=== PATIENT | female | born 1935 | race Native Hawaiian/Other Pacific Islander ===

== ENCOUNTER 2016-08-12 09:48 | Outpatient (CLI) | payer OTHER ==
[~2016-08-12] VITALS: Ht 162.6 cm; Wt 54.0 kg
[2016-08-12 10:05] VITALS: BP 116/59; TEMP 97.9
[2016-08-12 11:37] VITALS: BP 123/66; TEMP 97.9
== END 2016-08-12 19:16 | disposition home or self-care (01) ==
LOC: INF 09:48
DX: M81.0 Age-related osteoporosis without current pathological fracture (principal)
CPT/HCPCS: 36415; 82310; 96372; J0897

== ENCOUNTER 2017-03-02 08:39 | Outpatient (CLI) | payer OTHER ==
[~2017-03-02] VITALS: Ht 163.8 cm; Wt 54.0 kg
[2017-03-02 10:00] VITALS: BP 113/52; TEMP 97.5
== END 2017-03-02 19:03 | disposition home or self-care (01) ==
LOC: INF 08:39
DX: M81.0 Age-related osteoporosis without current pathological fracture (principal)
CPT/HCPCS: 82310; 96372; J0897

== ENCOUNTER 2017-09-13 09:48 | Outpatient (CLI) | payer OTHER ==
[~2017-09-13] VITALS: Ht 152.4 cm; Wt 51.7 kg
== END 2017-09-13 10:47 | disposition home or self-care (01) ==
LOC: INF 09:48
DX: M81.0 Age-related osteoporosis without current pathological fracture (principal)
CPT/HCPCS: 36415; 82310; 96372; J0897

== ENCOUNTER 2018-03-25 09:45 | Outpatient (CLI) | payer OTHER ==
[~2018-03-25] VITALS: Ht 152.4 cm; Wt 51.7 kg
== END 2018-03-25 20:17 | disposition home or self-care (01) ==
LOC: INF 09:45
DX: M81.0 Age-related osteoporosis without current pathological fracture (principal)
CPT/HCPCS: 36415; 82310; 96372; J0171; J0897; J1200; J2930

== ENCOUNTER 2018-10-05 07:50 | Outpatient (CLI) | payer OTHER ==
[~2018-10-05] VITALS: Ht 170.2 cm; Wt 52.2 kg
[2018-10-05 09:08] VITALS: BP 116/64; TEMP 97.6
== END 2018-10-05 23:16 | disposition home or self-care (01) ==
LOC: INF 07:50
DX: M80.00XA Age-related osteoporosis with current pathological fracture, unspecified site, initial encounter for fracture (principal)
CPT/HCPCS: 36415; 82310; 96372; J0897

== ENCOUNTER 2019-05-01 08:38 | Outpatient (CLI) | payer OTHER | END 2019-05-01 19:18 | disposition home or self-care (01) | LOC: INF 08:38 | DX: M81.0 Age-related osteoporosis without current pathological fracture (principal) | CPT/HCPCS: 36415; 82310 ==

== ENCOUNTER 2019-05-02 10:55 | Outpatient (CLI) | payer OTHER ==
[~2019-05-02] VITALS: Ht 170.2 cm; Wt 53.5 kg
[2019-05-02 10:53] VITALS: BP 113/67; TEMP 98.2
== END 2019-05-02 11:20 | disposition home or self-care (01) ==
LOC: INF 10:55
DX: M81.0 Age-related osteoporosis without current pathological fracture (principal)
CPT/HCPCS: 96372; J0897

== ENCOUNTER 2019-12-05 07:30 | Outpatient (CLI) | payer OTHER ==
[~2019-12-05] VITALS: Ht 170.2 cm; Wt 79.4 kg
[2019-12-05 09:00] VITALS: BP 110/60; TEMP 99
== END 2019-12-05 09:42 | disposition home or self-care (01) ==
LOC: INF 07:30
DX: M81.0 Age-related osteoporosis without current pathological fracture (principal)
CPT/HCPCS: 36415; 82310; 96372; J0897

== ENCOUNTER 2020-06-05 08:49 | Outpatient (CLI) | payer OTHER ==
[~2020-06-05] VITALS: Ht 170.2 cm; Wt 52.2 kg
== END 2020-06-05 11:08 | disposition home or self-care (01) ==
LOC: INF 08:49
PROVIDERS: ATTEND Internal Medicine Endocrinology, Diabetes & Metabolism
DX: M81.0 Age-related osteoporosis without current pathological fracture (principal)
CPT/HCPCS: 36415; 82310; 96372; J0897